=== PATIENT | female | born 1950 | race Caucasian/White ===

== ENCOUNTER 2018-02-11 23:39 | Emergency (ER) | payer MEDICARE, MEDICAID ==
[~2018-02-11] VITALS: Ht 160 cm; Wt 93.9 kg
[~2018-02-11 23:39] MED LIST: BP MEDS; TRAM50TA2 PO
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
[2018-02-12] MEDS ORDERED: KETOROLAC TROMETHAMINE INJ 30 MG/ML VIAL IM ONE
[2018-02-12] MEDS ORDERED: KETOROLAC TROMETHAMINE INJ 30 MG/ML VIAL ONE (00:05)
--- NOTE | 2018-02-12 01:00 | NUR ---
NO S/S OF DISTRESS NOTED IN PT. PT'S FAMILY MEMBERS BEDSIDE.
--- NOTE | 2018-02-12 01:57 | NUR ---
Patient discharged to home in stable condition. Written and verbal after care instructions along with RX given. Patient verbalizes understanding of instruction. VSS upon discharge. Pt's family members bedside to take pt home.
[2018-02-12 01:58] VITALS: BP 123/61
== END 2018-02-12 02:00 | disposition home or self-care (01) ==
LOC: ER 23:41
DX: S16.1XXA Strain of muscle, fascia and tendon at neck level, initial encounter (principal); S20.219A Contusion of unspecified front wall of thorax, initial encounter; I10 Essential (primary) hypertension; I25.2 Old myocardial infarction; M19.90 Unspecified osteoarthritis, unspecified site; Z98.890 Other specified postprocedural states; V43.62XA Car passenger injured in collision with other type car in traffic accident, initial encounter; Y93.89 Activity, other specified; Y92.413 State road as the place of occurrence of the external cause; Y99.8 Other external cause status
CPT/HCPCS: 70450; 71045; 72125; 72170; 93005; 96372; 99284; A4606; J1885; Z7610